=== PATIENT | female | born 1995 | race Caucasian/White ===

== ENCOUNTER 2023-04-11 20:25 | Inpatient (IN) | payer OTHER, SELFPAY ==
[2023-04-11] VITALS (12 sets, daily range): BP systolic 82–139; BP diastolic 47–83; PULSE 75–109; RESP 12–18; TEMP 36.2–36.5; O2SAT 96–100; BMI 25.9
[2023-04-11 20:18] LABS: ROM Internal Control Test YES-OK TO RESULT pt. (Internal QC)
[2023-04-11 20:19] LABS: ROM Patient Test POSITIVE (Negative); Record Kit Lot#, ROM+ K1409
[2023-04-11] MEDS: Sodium Citrate/Citric Acid 30 ML UDC PO (20:53)
[2023-04-11] MEDS: Lactated Ringers 1,000 ML 999 ML IV (20:55)
[2023-04-11 20:59] LABS: Absolute Lymphocyte Count 2.04 X10^3/uL (0.83-4.51); Absolute Neutrophil Count 6.5 X10^3/uL (2.0-7.7); Basophil# 0.03 X10^3/uL; Basophil% 0.3 % (0-1); Eosinophil# 0.07 X10^3/uL; Eosinophils% 0.8 % (0-5); Hematocrit 36.5 % (37-47); Hemoglobin 11.6 g/dL (12.0-15.0); Lymphocyte # 2.04 X10^3/ul (0.83-4.51); Lymphocyte % 22.1 % (19-41); Mean Corp Hgb Conc 31.8 g/dL (32-36); Mean Corpuscular Hgb 27.8 pg (27.0-32.0); Mean Corpuscular Volume 87.3 fL (81-99); Mean Platelet Vol. 10.5 fl (6.2-12.0); Monocyte# 0.62 X10^3/uL; Monocyte% 6.7 % (0-10); NRBC Flagged by Analyzer 0 % (0-5); Neutrophil # 6.47 X10^3/uL (2.7-7.7); Neutrophil % 69.9 % (47-70); Platelet Count 282 K/mm3 (150-450); RBC Distribution Width SD 40.8 fl (35.1-43.9); Red Blood Count 4.18 M/mm3 (4.2-5.4); White Blood Count 9.3 K/mm3 (4.4-11.0)
--- NOTE | 2023-04-11 21:00 | HP.PCM.OB_ITS ---
HPI - General General Date of Admission: 04/11/23 HPI Narrative LUX CHAVEZ, is a 28 F @ 38 weeks who c/o contractions and SROM around 6pm- found to be 4cm- pt had previous cs and planning repeat cs. Upon arrival discussed with patient vs repeat cs- pt would like to proceed with cs at this time. [facility] Medical History (Updated 04/11/23 @ 21:[address] Millicent Randall MD) Thyroid disorder Home Medications levothyroxine 50 mcg tablet (Synthroid) 50 mcg PO DAILY 04/11/23 [History Last Taken 04/11/23] vit no.95-ferrous fumarate 28 mg-folic acid 800 mcg tablet () 1 tab PO DAILY 04/11/23 [History Last Taken 04/11/23] Allergy/AdvReac Type Severity Reaction Status Date / Time acetaminophen Allergy Hives Verified 04/11/23 19:55 Surgical History (Updated 04/11/23 @ 21:[address] Millicent Randall MD) History of surgery Previous section Social History Smoking Status: Never smoker History Elective abortions Hx Para 1 Spontaneous abortions Hx # Term Pregnancies Ectopic pregnancies Hx # Pregnancies Multiple births # of living children Vital Signs Vital Signs Vital Signs: 04/11/23 19:48 04/11/23 19:51 04/11/23 19:51 Temperature Temperature Source Temporal Pulse Rate 76 Respiratory Rate Blood Pressure 139/83 H Blood Pressure Mean BP Systolic 139 BP Diastolic 83 Blood Pressure Source Blood Pressure Position Blood Pressure Location Pulse Ox Oxygen Delivery Method 04/11/23 19:48 04/11/23 19:51 04/11/23 19:51 Temperature 97.2 F L Temperature Source Pulse Rate 75 Respiratory Rate Blood Pressure Blood Pressure Mean BP Systolic BP Diastolic Blood Pressure Source Blood Pressure Position Blood Pressure Location Pulse Ox 100 Oxygen Delivery Method 04/11/23 20:37 Temperature 97.2 F L Temperature Source Temporal Pulse Rate 76 Respiratory Rate 14 Blood Pressure 139/83 H Blood Pressure Mean 101 BP Systolic BP Diastolic Blood Pressure Source Monitor Blood Pressure Position Semi-Fowlers Blood Pressure Location Right Arm Pulse Ox 96 Oxygen Delivery Method Room Air Weight Weight: 73.028 kg Body Mass Index (BMI) 25.9 Physical Exam Narrative VE: 4/90/-2 Const alert and oriented x3 General Appearance: cooperative HEENT normocephalic GI GI Narrative: Gravid, non tender to palpation. OB / External & Speculum: external exam normal Extremity normal to inspection Skin no rashes or lesions noted Neuro oriented x3 and CN's II-XII intact bilaterally Psych Appearance: grossly normal Labs Labs Labs: Blood Type Pending Antibody Screen Pending Hct 36.5 % (37-47) L Hgb 11.6 g/dL (12.0-15.0) L Syphilis Total Ab Pending Assessment & Plan (1) SROM (spontaneous rupture of membranes): (2) 38 weeks gestation of : (3) Previous section: (4) Thyroid disorder: COMMENT: hypothyroidism- synthroid PLAN: Plan Admit to L&D [facility] FHR/TOCO Discussed TOLAC vs Repeat cs- pt decided for repeat cs Monitor VS OR team notified Ancef and Azithromycin ordered
[2023-04-11] MEDS: Cefazolin 2 GM in 0.9% Normal Saline (100mL Bag) 100 ML IV (21:20)
[2023-04-11] MEDS: Azithromycin 500 MG in Dextrose 5%-Water (250mL Bag) 250 ML 250 MG IV (21:35)
[2023-04-11 21:40] LABS: Syphilis Antibodies Non-reactive
--- NOTE | 2023-04-11 21:57 | EX.PCM.OBRPT ---
Details Operative Information Date of Procedure: 04/11/23 Pre-Operative Diagnosis: term gestation 38.4 weeks, previous cs, SROM, early labor Post-Operative Diagnosis: same, live male infant Indications for : Repeat Elective Indications Narrative: Pt presented with SROM, Regular painful contractions and found to be 4cm- Counseled on TOLAC vs repeat CS after discussion pt chose to proceed with repeat cs Classification: RICKY Procedure Type: low transverse foundation stage teacher #1: London Guillen Type of Anesthesia: Spinal Special Medications: Manoj Antibiotic Given: Ancef 2 grams IV x1 and Zithromax 500 mg/5 mL X1 Drain: Villasenor to straight drain Estimated Blood Loss: 600 Fluids Replaced: 1500 Procedure Start Time: 21:27 Procedure Stop Time: 22:02 Time of Delivery: 21:30 Findings Description of Procedure: After informed consent was obtained the patient was taken the operating room she was given spinal anesthesia. She was then placed in the supine position. She was prepped and draped in the normal sterile fashion. Anesthesia was found to be adequate. At this time a Pfannenstiel skin incision was made with a knife was carried down to the underlying layer of the fascia. The fascial incision was then extended laterally using gentle traction. Attention was then turned to the superior aspect of the fascial edge was grasped with 2 straight Palmer clamps tented up and the rectus muscle dissected off bluntly. Rectus muscles were then in the midline bluntly and peritoneum was entered bluntly. Gentle opposing traction was placed. At this time the vesicouterine peritoneum was identified. Lower uterine segment appeared thin and bulging out noted on left side- no distinct window was noted but with a contraction you could see almost like a bubble formation form on left - possible window forming on left side of midline of uterus. Scalpel was used to make a uterine incision in a low transverse fashion. The uterus was then entered bluntly gentle opposing traction was placed to extend this incision. Membranes were ruptured clear. was noted to be in OP position. head was brought to the uterine incision was delivered atraumatically. Cord was clamped and cut was handed to the waiting nursery team. The Placenta was removed from the uterus. The uterus was then removed from the abdominal cavity. The uterus was cleared of all clots and debris using a lap. Small Extension down left side- This was repaired with 1-0 vicryl in running locked fashion. At this time the uterine incision was reapproximated using #1 Vicryl in a running locked fashion. Hemostasis was appreciated. Posterior cul-de-sac was then cleared of all clots and debris. Uterus was placed back in the abdominal cavity. Gutters were cleared of all clots and debris. Uterine incision was reevaluated and noted to be of excellent hemostasis. Manoj was placed over uterine incision. At this time the peritoneum and muscle were grasped with Kellys reapproximated using #2 Vicryl suture in a running fashion. Manoj placed over rectus muscle. Fascia was then reapproximated using #1 Vicryl in a running fashion. Subcu layer was irrigated with NS and bovie used to coagulate any small bleeding. it was then reapproximated with #2 0 plain gut suture in an interrupted fashion. Subcu layer was closed using 4-0 Monocryl in a subcu fashion. Dry sterile dressing was applied. Instrument lap needle count correct ?2. Anticipated normal postoperative course. Presentation: Positive for Vertex Amniotic Membrane Rupture Type: Spontaneous Amniotic Fluid Description: Clear Placental Delivery Description: Expressed Placenta Disposition: [facility] Cord Vessel Description: 3 Vessels Cord Entanglement: Around neck x 1, loose A Gender: Male (1 minute): 8 (5 minute): 9 Delayed Cord Clamping: Yes Complications Risks of Surgery Discussed w/Patient: Bleeding, Anesthesia Risks, Infection, Need for Future C-Sections and Injury to surrounding structure(s) including bowel and bladder Complications: none
[2023-04-11] MEDS: Oxytocin 15 Units/NS 250ml 15 UNITS/250 ML IV.SOLN 83 UNITS IV (22:38)
[2023-04-11] MEDS: Ketorolac 30 MG/ML Syringe IV (23:18)
[2023-04-11] MEDS: proCHLORPERazine 10 MG/2 ML Vial IV (23:18)
[2023-04-12] VITALS (17 sets, daily range): BP systolic 106–138; BP diastolic 63–81; PULSE 66–88; RESP 16–18; TEMP 36.2–37.4; O2SAT 97–100
[2023-04-12] MEDS: Lactated Ringers 1,000 ML 100 ML IV (01:43)
[2023-04-12] MEDS: Ketorolac 30 MG/ML Syringe IV ×3 (04:29→16:15)
[2023-04-12] MEDS: 0.9% Saline Lock 10 ML Syringe IV ×2 (04:29→16:16)
--- NOTE | 2023-04-12 05:44 | PCM.PROGNOTE ---
Subjective Subjective patient seen at bedside, doing well. Patient reports good pain control. lochia mild. bottle feeding. Villasenor just removed- awaiting voiding trial. denies n/v and tolerating PO intake. Objective Data Objective Data Vital Signs: Vital Signs Temp Pulse Resp BP Pulse Ox O2 Del Method 98.4 F 74 16 115/69 100 Room Air 04/12/23 04:32 04/12/23 04:32 04/12/23 04:34 04/12/23 04:32 04/12/23 04:34 04/12/23 04:34 Oxygen Delivery Method Room Air Weight: 73.028 kg Body Mass Index (BMI) 25.9 Intake & Output: Intake and Output for Last 24 Hours 04/10/23 04/11/23 04/12/23 23:59 23:59 23:59 Intake Total 614.75 / 614.75 250 / 250 Output Total 800 / 800 75 / 75 Balance -185.25 / -185.25 175 / 175 Lab / Micro Data 04/11/23 20:40 Labs: Laboratory Results - last 24 hr 04/11/23 20:00: Vag Amniotic Fld Detect POSITIVE H 04/11/23 20:40: WBC 9.3, RBC 4.18 L, Hgb 11.6 L, Hct 36.5 L, MCV 87.3, MCH 27.8, MCHC 31.8 L, RDW Std Deviation 40.8, RDW Coeff of Annette 13.0, Plt Count 282, MPV 10.5, Immature Gran % (Auto) 0.200, Neut % (Auto) 69.9, Lymph % (Auto) 22.1, [place] % (Auto) 6.7, Eos % (Auto) 0.8, Baso % (Auto) 0.3, Absolute Neuts (auto) 6.5, Absolute Lymphs (auto) 2.04, Nucleated RBC % 0, Syphilis Total Ab Non-reactive, Blood Type A POSITIVE, Antibody Screen NEGATIVE Physical Exam Narrative ABD: dressing dry and intact. Fundus firm. Const alert and oriented x3 General Appearance: cooperative HEENT normocephalic Neck General: normal visual inspection GI soft to palpation and non-distended GI Narrative: Fundus firm Extremity normal to inspection and no calf tenderness Skin no rashes or lesions noted Neuro oriented x3 and CN's II-XII intact bilaterally Psych mental status grossly normal Assessment & Plan Assessment/Plan (1) Thyroid disorder: (2) Delivery by section: PLAN: Plan POD#1 , Doing well Routine care pain mgmt monitor VS ambulation
[2023-04-12] MEDS: Levothyroxine 50 MCG Tablet PO (06:30)
[2023-04-12 06:45] LABS: Hematocrit 29.6 % (37-47); Hemoglobin 9.5 g/dL (12.0-15.0); Mean Corp Hgb Conc 32.1 g/dL (32-36); Mean Corpuscular Hgb 28.2 pg (27.0-32.0); Mean Corpuscular Volume 87.8 fL (81-99); Mean Platelet Vol. 10.2 fl (6.2-12.0); Platelet Count 211 K/mm3 (150-450); RBC Distribution Width CV 12.9 % (11.6-14.6); RBC Distribution Width SD 41.2 fl (35.1-43.9); Red Blood Count 3.37 M/mm3 (4.2-5.4); White Blood Count 9.2 K/mm3 (4.4-11.0)
[2023-04-12] MEDS: Senna/Docusate Sodium 1 Tablet PO ×2 (10:16→10:26)
[2023-04-12] MEDS: Ibuprofen 600 MG Tablet PO (22:35)
[2023-04-13 03:02] VITALS: BP 119/75; PULSE 76; RESP 16; TEMP 36.6
[2023-04-13] MEDS: Ibuprofen 600 MG Tablet PO (04:30)
[2023-04-13] MEDS: Levothyroxine 50 MCG Tablet PO (07:14)
[2023-04-13 07:44] VITALS: BP 123/78; PULSE 74; RESP 16; TEMP 37.1; O2SAT 98
--- NOTE | 2023-04-13 09:34 | PCM.PROGNOTE ---
Subjective Subjective patient seen at bedside, doing well. Patient reports good pain control. lochia mild. passing flatus, +BM, +voiding. tolerating regular diet. Bottle feeding. Objective Data Objective Data Vital Signs: Vital Signs Temp Pulse Resp BP Pulse Ox O2 Del Method 98.7 F 74 16 123/78 H 98 Room Air 04/13/23 07:44 04/13/23 07:44 04/13/23 07:44 04/13/23 07:44 04/13/23 07:44 04/13/23 07:44 Oxygen Delivery Method Room Air Weight: 73.028 kg Body Mass Index (BMI) 25.9 Intake & Output: Intake and Output for Last 24 Hours 04/11/23 04/12/23 04/13/23 23:59 23:59 23:59 Intake Total 614.75 / 614.75 858 / 858 Output Total 800 / 800 475 / 475 Balance -185.25 / -185.25 383 / 383 Lab / Micro Data 04/12/23 06:30 Physical Exam Narrative dressing dry and intact. Fundus firm. Const alert and oriented x3 General Appearance: cooperative HEENT normocephalic Neck General: normal visual inspection GI soft to palpation and non-distended GI Narrative: Fundus firm Extremity normal to inspection and no calf tenderness Skin no rashes or lesions noted Neuro oriented x3 and CN's II-XII intact bilaterally Psych mental status grossly normal Assessment & Plan Assessment/Plan (1) Delivery by section: (2) Thyroid disorder: PLAN: Plan POD#2 , Doing well Routine care pain mgmt monitor VS ambulation dc home
--- NOTE | 2023-04-13 09:35 | DCINST_ITS ---
Discharge Instructions Diet Discharge Diet: No restrictions Activity May resume sexual activity in: 6-8 weeks Lifting Restrictions: 25 Dressing / Incision Call your doctor if your incision/area has: Continuous Slow Oozing, Sudden Increased Bleeding, Increased Pain/ Swelling, Increased Redness, Foul Smelling Discharge and Swelling at the incision site Call your doctor if you observe: Fever of 101 or Higher, Inability to urinate, Using more than 1 pad per hour and Uncontrolled pain Additional Dressing/Incision Instructions:: remove dressing at 7 days post op- if it becomes saturated prior to that time you may remove it. Let soap and water run over incision sites and dab dry. keep incision clean and dry. Follow Up Care Please Follow Up With: Millicent Randall MD When: 1-2 weeks post of incision check and again at 6 weeks post . [phone] Test Results: Test results from this visit will be discussed in further detail at your follow- up appointment, if applicable. Discharge Plan Admission Admit Date/Time: 04/11/23 20:25 Attending Provider: Millicent Randall Primary Care Provider: Raúl Simms Discharge Orders/Prescriptions Prescriptions: New ibuprofen 600 mg Tablet 600 mg PO Q6H Qty: 0 0RF Continued PNV cmb#95-ferrous fumarate-FA [] 28 mg iron- 800 mcg tablet 1 tab PO DAILY levothyroxine [Synthroid] 50 mcg tablet 50 mcg PO DAILY Referrals / Follow Up: Raúl Simms MD [Primary Care Provider] - Disposition Disposition (needs filled in before D/C Order can be placed): Home, Self Care
--- NOTE | 2023-04-13 09:38 | DS.PCM_ITS ---
Discharge Summary Date of Admission: 04/11/23 Date of Discharge: 04/13/23 Summary: pt [facility] 04/11/2023 with spontaneous rupture membranes and early labor. Patient opted for repeat elective section underwent a low transverse section and had an uncomplicated postoperative course and was discharged home on postoperative day #2 in stable condition. Meaningful Use Info Meaningful Use Diagnoses (Choose all that apply): None applicable Discharge Plan Admission Admit Date/Time: 04/11/23 20:25 Attending Provider: Millicent Randall Primary Care Provider: Raúl Simms Discharge Orders/Prescriptions Prescriptions: New ibuprofen 600 mg Tablet 600 mg PO Q6H Qty: 0 0RF Continued PNV cmb#95-ferrous fumarate-FA [] 28 mg iron- 800 mcg tablet 1 tab PO DAILY levothyroxine [Synthroid] 50 mcg tablet 50 mcg PO DAILY Referrals / Follow Up: Raúl Simms MD [Primary Care Provider] - Disposition Disposition (needs filled in before D/C Order can be placed): Home, Self Care
--- NOTE | 2023-04-24 11:22 | NURSING ---
corrected mode of delivery
== END 2023-04-13 10:10 | disposition home or self-care (01) | DRG 788 ==
LOC: WPOUT 20:26 → WP 20:26
PROVIDERS: Admitting Provider Obstetrics & Gynecology; PCP Family Medicine; Referring Provider Obstetrics & Gynecology; Visit Provider Obstetrics & Gynecology
DX: O34.211 Maternal care for low transverse scar from previous cesarean delivery (principal); E03.9 Hypothyroidism, unspecified; O99.284 Endocrine, nutritional and metabolic diseases complicating childbirth; Z37.0 Single live birth; Z3A.38 38 weeks gestation of pregnancy; Z79.890 Hormone replacement therapy
CPT/HCPCS: 59025; 59050; 84112; 85025; 85027; 86780; 86850; 86900; 86901; 99221; J7120; A4216; G0378; J2405